=== PATIENT | male | born 1955 | race Two or more races ===

== ENCOUNTER 2023-09-07 17:41 | Inpatient (IN) | payer MEDICARE, OTHER ==
[~2023-09-07] VITALS: Ht 188 cm; Wt 75.0 kg
[2023-09-07 18:51] LABS: Basophils # (auto) 0.1 10 ^3/uL (0-0.2); Basophils % (auto) 0.9 % (0.0-2.0); Eosinophils # (auto) 0 10 ^3/uL (0-0.8); Eosinophils % (auto) 0.5 % (0.0-7.0); Hematocrit 40.8 % (41.0-53.0); Hemoglobin 14.3 g/dL (13.5-17.5); Lymphocytes # (auto) 1.4 10 ^3/uL (0.4-5.4); Lymphocytes % (auto) 22.5 % (10.0-50.0); Mean Corpuscular Volume 102.9 fL (80.0-100.0); Monocytes # (auto) 0.5 10 ^3/uL (0-1.3); Monocytes % (auto) 8.3 % (0.0-12.0); Neutrophils # (auto) 4.3 10 ^3/uL (1.6-8.6); Neutrophils % (auto) 67.8 % (37.0-80.0); Nucleated Red Blood Cells % 0.3 %; Red Blood Cells 3.97 10^6/uL (4.5-5.90); Red Cell Distribution Width 16.2 % (11.8-14.3); White Blood Cell 6.3 10^3/uL (4.4-10.8)
[2023-09-07 19:09] LABS: Alanine Aminotransferase 75 U/L (7-40); Albumin 2.7 g/dL (3.2-4.8); Alkaline Phosphatase 183 U/L (46-116); Anion Gap 6 (5-15); Aspartate Aminotransferase 100 U/L (13-40); BUN/Creatinine Ratio 12.3 (10.0-20.0); Blood Alcohol < 3.0 mg/dL (<10); Blood Urea Nitrogen 10 mg/dL (9-23); Calcium 8.4 mg/dL (8.5-10.1); Carbon Dioxide 23 mmol/L (20-30); Chloride 104 mmol/L (98-107); Glucose 100 mg/dL (74-106); Potassium 3.8 mmol/L (3.5-5.1); Sodium 133 mmol/L (136-145)
[2023-09-07 19:10] LABS: Bilirubin, Total 3.1 mg/dL (0.2-1.0); Total Protein 7.6 g/dL (5.7-8.2)
[2023-09-07 22:45] VITALS: PULSE 86; RESP 13; O2SAT 93
[2023-09-08 04:33] LABS: Amphetamine Screen, Urine Neg (NEGATIVE); Barbiturate Scree,Urine Neg (NEGATIVE); Benzodiazephine Screen, Urine Neg (NEGATIVE)
[2023-09-08 04:34] LABS: Cannabinoid Screen, Urine Neg (NEGATIVE); Cocaine Screen, Urine Neg (NEGATIVE); Opiate Scree,Urine Neg (NEGATIVE); Phencyclidine Screen, Urine Neg (NEGATIVE)
[2023-09-08 04:58] LABS: Urine Bacteria NONE SEEN /hpf (None Seen); Urine Blood Negative /uL (Negative); Urine Clarity Clear (Clear); Urine Color Yellow (Yellow); Urine Mucus FEW (None Seen); Urine Protein, UAD Negative (Negative); Urine Specific Gravity 1.021 (1.001-1.035); Urine Urobilinogen >12.0 mg/dL (Negative); Urine WBC 2 /hpf (0 - 3)
[2023-09-08] MEDS ORDERED: ONDANSETRON HCL 4 MG/2 ML VIAL IV PRN (05:15)
[2023-09-08] MEDS: SODIUM CHLORIDE 0.9% 1,000 ML IV ONE (05:29)
[2023-09-08] MEDS: LACTULOSE 20Gm/30ML SOLN PO SCH (08:53)
[2023-09-08 13:03] VITALS: BP 126/72; PULSE 66; RESP 17; TEMP 97.8; O2SAT 96
[2023-09-08] MEDS ORDERED: LACTULOSE 20Gm/30ML SOLN PO SCH (22:00)
== END 2023-09-08 16:12 | disposition home or self-care (01) | DRG 92 ==
LOC: EDBD 17:41 → ER 17:41 → OVERFLOW 09-08 05:15
PROVIDERS: ADMIT Nurse Practitioner; ATTEND Nurse Practitioner Acute Care
DX: G92.9 Unspecified toxic encephalopathy (principal); E72.20 Disorder of urea cycle metabolism, unspecified; K76.82 Hepatic encephalopathy; R74.01 Elevation of levels of liver transaminase levels; F11.90 Opioid use, unspecified, uncomplicated; K74.60 Unspecified cirrhosis of liver
CPT/HCPCS: 36415; 70450; 76700; 80053; 80307; 80320; 81001; 82140; 82962; 83690; 85025; 93005; G0378

== ENCOUNTER 2023-09-26 06:46 | Inpatient (IN) | payer MEDICARE, OTHER ==
[2023-09-26] VITALS (12 sets, daily range): BP systolic 100–143; BP diastolic 65–94; PULSE 59–134; RESP 18–32; O2SAT 87–100
[~2023-09-26] VITALS: Ht 167.6 cm; Wt 72.1 kg
[2023-09-26 07:51] LABS: Basophils # (auto) 0 10 ^3/uL (0-0.2); Eosinophils # (auto) 0 10 ^3/uL (0-0.8); Eosinophils % (auto) 0.2 % (0.0-7.0); Hemoglobin 14.8 g/dL (13.5-17.5); Lymphocytes # (auto) 0.6 10 ^3/uL (0.4-5.4); Monocytes # (auto) 0.3 10 ^3/uL (0-1.3)
[2023-09-26 07:53] LABS: Basophils % (auto) 0.3 % (0.0-2.0); Hematocrit 39.4 % (41.0-53.0); Mean Corpuscular Hemoglobin 38.8 pg (28.0-32.0); Mean Corpuscular Volume 103.5 fL (80.0-100.0); Monocytes % (auto) 7.6 % (0.0-12.0); Neutrophils # (auto) 3.2 10 ^3/uL (1.6-8.6); Neutrophils % (auto) 76.9 % (37.0-80.0); Nucleated Red Blood Cells % 0.7 %; Red Cell Distribution Width 16.6 % (11.8-14.3); White Blood Cell 4.2 10^3/uL (4.4-10.8)
[2023-09-26 07:59] LABS: Mean Corpuscular Hgb Conc. 37.5 g/dL (32.0-36.0)
[2023-09-26] MEDS: IPRATROPIUM BROM 0.5 MG/2.5ML INH SOL NEB ONE (08:02)
[2023-09-26] MEDS: ALBUTEROL SULF 2.5 MG/0.5ML(0.5%) NEB SOLN NEB ONE (08:02)
[2023-09-26 08:12] LABS: Alanine Aminotransferase 48 U/L (7-40); Albumin 2.3 g/dL (3.2-4.8); Alkaline Phosphatase 145 U/L (46-116); Anion Gap 14 (5-15); Aspartate Aminotransferase 78 U/L (13-40); BUN/Creatinine Ratio 24.4 (10.0-20.0); Bilirubin, Total 2.8 mg/dL (0.2-1.0); Blood Urea Nitrogen 21 mg/dL (9-23); Calcium 8.2 mg/dL (8.5-10.1); Carbon Dioxide 15 mmol/L (20-30); Chloride 106 mmol/L (98-107); Glucose 84 mg/dL (74-106); Potassium 4.4 mmol/L (3.5-5.1); Sodium 135 mmol/L (136-145); Total Protein 6.6 g/dL (5.7-8.2)
[2023-09-26 08:18] LABS: Lactic Acid w/Reflex 5.5 mmol/L (0.4-2.0)
[2023-09-26 08:25] LABS: Base Excess -6.6 mmol/L (-2.0-2.0)
[2023-09-26 08:38] LABS: Anisocytosis Slight; Macrocytosis Slight; Platelet Estimate Adequate; Tear Drop Cells FEW
[2023-09-26] MEDS: SODIUM CHLORIDE 0.9% 1,000 ML IV ONE ×3 (09:51→15:50)
[2023-09-26] MEDS: methylPREDNISolone SOD SUCC 125 MG/2 ML VL IV ONE (09:51)
[2023-09-26] MEDS: FUROSEMIDE 40 MG/4 ML VIAL IV ONE (09:51)
[2023-09-26] MEDS: LORazepam 0.5 MG TAB PO ONE (10:36)
[2023-09-26] MEDS ORDERED: ACETAMINOPHEN 325 MG TAB PO PRN (10:45)
[2023-09-26] MEDS ORDERED: NITROGLYCERIN 0.4 MG SL TAB SL PRN (10:45)
[2023-09-26] MEDS ORDERED: MORPHINE SULFATE INJ 2 MG/ml SYRG IV PRN (10:45)
[2023-09-26] MEDS: cefTRIAXone 1GM/50ML D5W 50 ML IV ONE (11:32)
[2023-09-26] MEDS: PANTOPRAZOLE 40 MG/10 ML VIAL INJ IV ONE (11:32)
[2023-09-26 11:49] LABS: Urine Bacteria FEW /hpf (None Seen); Urine Blood TRACE /uL (Negative); Urine Clarity Clear (Clear); Urine Color Yellow (Yellow); Urine Hyaline Cast MANY /lpf (0 - 2); Urine Mucus FEW (None Seen); Urine Protein, UAD Negative (Negative); Urine Specific Gravity 1.009 (1.001-1.035); Urine Urobilinogen 4 mg/dL (Negative); Urine WBC 7 /hpf (0 - 3); Urine pH 6.5 (5.0-9.0)
[2023-09-26] MEDS: AZITHROMYCIN 500MG/ 250ML 250 ML IV ONE (12:01)
[2023-09-26 12:06] LABS: Amphetamine Screen, Urine Neg (NEGATIVE); Barbiturate Scree,Urine Neg (NEGATIVE); Benzodiazephine Screen, Urine Neg (NEGATIVE); Cocaine Screen, Urine Neg (NEGATIVE); Opiate Scree,Urine Neg (NEGATIVE)
[2023-09-26 12:07] LABS: Cannabinoid Screen, Urine Neg (NEGATIVE); Phencyclidine Screen, Urine Neg (NEGATIVE)
[2023-09-26 13:44] LABS: INR 1.75 (0.9-1.15); Prothrombin Time 17.7 sec (9.3-11.8)
[2023-09-26] MEDS: FUROSEMIDE 20 MG/2 ML VIAL IV ONE (13:59)
[2023-09-26] MEDS: IPRATROPIUM BROM 0.5 MG/2.5ML INH SOL NEB SCH (14:10)
[2023-09-26] MEDS: ALBUTEROL SULF 2.5 MG/0.5ML(0.5%) NEB SOLN NEB SCH (14:10)
[2023-09-26 14:44] LABS: Rapid Influenza A Negative (Negative); Rapid Influenza B Negative (Negative)
[2023-09-26 14:45] LABS: COVID19 ANTIGEN SOFIA FIA NEGATIVE (NEGATIVE)
[2023-09-26 15:25] LABS: Lactic Acid w/Reflex 8.9 mmol/L (0.4-2.0)
[2023-09-26 20:53] LABS: Lactic Acid w/Reflex 9.6 mmol/L (0.4-2.0)
[2023-09-26] MEDS: methylPREDNISolone SOD SUCC 40 MG/ML VL IV SCH (21:14)
[2023-09-27] VITALS (12 sets, daily range): BP systolic 106–135; BP diastolic 39–80; PULSE 109–121; RESP 23–27; O2SAT 92–98
[2023-09-27 05:53] LABS: Basophils # (auto) 0 10 ^3/uL (0-0.2); Eosinophils # (auto) 0 10 ^3/uL (0-0.8); Hematocrit 37.5 % (41.0-53.0); Lymphocytes # (auto) 0.8 10 ^3/uL (0.4-5.4); Lymphocytes % (auto) 6.1 % (10.0-50.0)
[2023-09-27 05:55] LABS: Eosinophils % (auto) 0.1 % (0.0-7.0); Mean Corpuscular Hemoglobin 38.8 pg (28.0-32.0); Mean Corpuscular Volume 104.1 fL (80.0-100.0); Monocytes # (auto) 0.5 10 ^3/uL (0-1.3); Monocytes % (auto) 3.6 % (0.0-12.0); Neutrophils # (auto) 11.4 10 ^3/uL (1.6-8.6); Neutrophils % (auto) 90.2 % (37.0-80.0); Nucleated Red Blood Cells % 0.2 %; Red Cell Distribution Width 16.8 % (11.8-14.3); White Blood Cell 12.7 10^3/uL (4.4-10.8)
[2023-09-27 05:56] LABS: Alanine Aminotransferase 39 U/L (7-40); Alkaline Phosphatase 99 U/L (46-116); Anion Gap 18 (5-15); Aspartate Aminotransferase 81 U/L (13-40); BUN/Creatinine Ratio 20.8 (10.0-20.0); Blood Urea Nitrogen 21 mg/dL (9-23); Calcium 8.2 mg/dL (8.5-10.1); Carbon Dioxide 14 mmol/L (20-30); Chloride 109 mmol/L (98-107); Glucose 93 mg/dL (74-106); Potassium 4.3 mmol/L (3.5-5.1); Sodium 141 mmol/L (136-145)
[2023-09-27 05:57] LABS: Bilirubin, Total 2.6 mg/dL (0.2-1.0); Total Protein 5.7 g/dL (5.7-8.2)
[2023-09-27 06:00] LABS: Mean Corpuscular Hgb Conc. 37.2 g/dL (32.0-36.0)
[2023-09-27] MEDS: cefTRIAXone 1GM/50ML D5W 50 ML IV SCH (09:20)
[2023-09-27] MEDS: ENOXAPARIN SOD 40 MG/0.4 ML SYRINGE SC SCH (10:47)
[2023-09-27] MEDS: PANTOPRAZOLE 40 MG/10 ML VIAL INJ IV SCH (10:47)
[2023-09-27] MEDS: AZITHROMYCIN 500MG/ 250ML 250 ML IV SCH (10:48)
[2023-09-27] MEDS: ONDANSETRON HCL 4 MG/2 ML VIAL IV PRN (20:56)
[2023-09-27] MEDS: LORazepam 2MG/ML-1ML VIAL IV PRN (20:58)
[2023-09-28] VITALS (13 sets, daily range): BP systolic 98–169; BP diastolic 49–103; PULSE 94–123; RESP 20–22; O2SAT 94–98
[2023-09-28] MEDS: ALBUTEROL SULF 2.5 MG/0.5ML(0.5%) NEB SOLN NEB PRN (00:21)
[2023-09-28] MEDS: PROPOFOL 100 ML IV SCH (12:40)
[2023-09-28] MEDS ORDERED: VANCOMYCIN PER PHARMACY 0 MG IV SCH (12:45)
[2023-09-28] MEDS: ROCURONIUM 10MG/ML 10ML VIAL IV ONE (13:00)
[2023-09-28] MEDS: ETOMIDATE (2MG/ML) 20ML VIAL IV ONE (13:00)
[2023-09-28] MEDS: fentaNYL Drip 2500mCg/250mlNS 250 ML IV SCH (13:16)
[2023-09-28 15:16] LABS: Base Excess -6.5 mmol/L (-2.0-2.0)
[2023-09-28] MEDS: NOREPINEPHRINE 8 MG/250ML KIT 250 ML IV SCH (15:37)
[2023-09-28] MEDS: VASOPRESSIN 20 UNITS in SODIUM CHL 0.9% 99 ML IV SCH (15:50)
[2023-09-28] MEDS: THIAMINE 100mg/ml INJ (200mg/2ml VIAL) IV SCH (19:03)
[2023-09-28] MEDS: SODIUM BICARB 50mEq/50ml Vial 50 ML in SOD CHL 0.45% 1,000 ML IV SCH (20:30)
[2023-09-28] MEDS: VANCOMYCIN 1GM/200ML 200 ML IV ONE (20:38)
[2023-09-28] MEDS: CEFEPIME 2GM/50ML NS 50 ML IV SCH (22:10)
[2023-09-29] VITALS (84 sets, daily range): BP systolic 87–135; BP diastolic 41–110; PULSE 67–100; RESP 13–22; TEMP 97.6–98.6; O2SAT 91–99
[2023-09-29 04:59] LABS: Alanine Aminotransferase 38 U/L (7-40); Albumin 1.8 g/dL (3.2-4.8); Alkaline Phosphatase 80 U/L (46-116); Anion Gap 9 (5-15); Aspartate Aminotransferase 72 U/L (13-40); BUN/Creatinine Ratio 30.9 (10.0-20.0); Carbon Dioxide 20 mmol/L (20-30); Chloride 109 mmol/L (98-107); Glucose 133 mg/dL (74-106); Potassium 5.1 mmol/L (3.5-5.1); Sodium 138 mmol/L (136-145)
[2023-09-29 05:00] LABS: Bilirubin, Total 2.2 mg/dL (0.2-1.0); Total Protein 5.4 g/dL (5.7-8.2)
[2023-09-29 05:01] LABS: Blood Urea Nitrogen 50 mg/dL (9-23)
[2023-09-29 05:14] LABS: Basophils # (auto) 0 10 ^3/uL (0-0.2); Basophils % (auto) 0.4 % (0.0-2.0); Eosinophils # (auto) 0 10 ^3/uL (0-0.8); Hematocrit 36.4 % (41.0-53.0); Hemoglobin 12.3 g/dL (13.5-17.5); Lymphocytes # (auto) 0.8 10 ^3/uL (0.4-5.4); Lymphocytes % (auto) 6.7 % (10.0-50.0); Mean Corpuscular Hemoglobin 33.3 pg (28.0-32.0); Mean Corpuscular Hgb Conc. 33.6 g/dL (32.0-36.0); Mean Corpuscular Volume 99.1 fL (80.0-100.0); Monocytes # (auto) 0.5 10 ^3/uL (0-1.3); Monocytes % (auto) 4.5 % (0.0-12.0); Neutrophils # (auto) 10.3 10 ^3/uL (1.6-8.6); Neutrophils % (auto) 88.4 % (37.0-80.0); Nucleated Red Blood Cells % 0.1 %; Red Blood Cells 3.68 10^6/uL (4.5-5.90); Red Cell Distribution Width 16.8 % (11.8-14.3); White Blood Cell 11.6 10^3/uL (4.4-10.8)
[2023-09-29 07:47] LABS: Base Excess -4.8 mmol/L (-2.0-2.0)
[2023-09-29] MEDS: VANCOMYCIN 750mg/150ml 150 ML IV SCH (09:00)
[2023-09-29] MEDS: ALBUMIN 25% 100 ML IV SCH (09:24)
[2023-09-29] MEDS: MIDODRINE HCL 10 MG TAB PO SCH (13:15)
[2023-09-29] MEDS: LINEZOLID 600MG/300ML 300 ML IV SCH (19:53)
[2023-09-29] MEDS ORDERED: LINEZOLID 600MG/300ML 300 ML IV SCH (22:00)
[2023-09-30] VITALS (110 sets, daily range): BP systolic 91–135; BP diastolic 45–61; PULSE 63–93; RESP 16–22; TEMP 96.3–98.7; O2SAT 91–98
[2023-09-30 07:35] LABS: Alanine Aminotransferase 32 U/L (7-40); Alkaline Phosphatase 78 U/L (46-116); Anion Gap 8 (5-15); Aspartate Aminotransferase 45 U/L (13-40); BUN/Creatinine Ratio 33.5 (10.0-20.0); Calcium 8.1 mg/dL (8.5-10.1); Carbon Dioxide 23 mmol/L (20-30); Chloride 106 mmol/L (98-107); Glucose 158 mg/dL (74-106); Potassium 5.2 mmol/L (3.5-5.1); Sodium 137 mmol/L (136-145)
[2023-09-30 07:36] LABS: Bilirubin, Total 2.2 mg/dL (0.2-1.0); Total Protein 6.4 g/dL (5.7-8.2)
[2023-09-30 07:38] LABS: Albumin 2.8 g/dL (3.2-4.8)
[2023-09-30 07:39] LABS: Blood Urea Nitrogen 69 mg/dL (9-23)
[2023-09-30 08:13] LABS: Basophils # (auto) 0 10 ^3/uL (0-0.2); Basophils % (auto) 0.1 % (0.0-2.0); Eosinophils # (auto) 0 10 ^3/uL (0-0.8); Hematocrit 32.8 % (41.0-53.0); Hemoglobin 11.2 g/dL (13.5-17.5); Lymphocytes # (auto) 0.9 10 ^3/uL (0.4-5.4); Mean Corpuscular Hemoglobin 34.5 pg (28.0-32.0); Mean Corpuscular Volume 101.3 fL (80.0-100.0); Monocytes # (auto) 0.8 10 ^3/uL (0-1.3); Monocytes % (auto) 6.4 % (0.0-12.0); Neutrophils # (auto) 11.3 10 ^3/uL (1.6-8.6); Neutrophils % (auto) 86.5 % (37.0-80.0); Nucleated Red Blood Cells % 0.1 %; Red Blood Cells 3.23 10^6/uL (4.5-5.90); Red Cell Distribution Width 16.8 % (11.8-14.3); White Blood Cell 13.1 10^3/uL (4.4-10.8)
[2023-09-30 08:34] LABS: Base Excess -6.1 mmol/L (-2.0-2.0)
[2023-09-30] MEDS ORDERED: Nepro With Carb Steady 1 Liter Bottle GT SCH (09:15)
[2023-09-30] MEDS: methylPREDNISolone SOD SUCC 40 MG/ML VL IV SCH (10:40)
[2023-09-30] MEDS: DOXYCYCLINE 100MG/250ML 250 ML IV SCH (10:41)
[2023-09-30] MEDS: FUROSEMIDE 100 MG/10ML VIAL IV ONE (14:18)
[2023-10-01] VITALS (111 sets, daily range): BP systolic 88–128; BP diastolic 44–70; PULSE 67–109; RESP 17–25; TEMP 97–98.3; O2SAT 93–99
[2023-10-01 05:37] LABS: Chloride 107 mmol/L (98-107); Potassium 4.2 mmol/L (3.5-5.1); Sodium 140 mmol/L (136-145)
[2023-10-01 05:38] LABS: Anion Gap 9 (5-15); Carbon Dioxide 24 mmol/L (20-30)
[2023-10-01 05:43] LABS: Blood Urea Nitrogen 77 mg/dL (9-23); Glucose 157 mg/dL (74-106)
[2023-10-01 07:33] LABS: Base Excess -3.5 mmol/L (-2.0-2.0)
[2023-10-01 07:54] LABS: Hematocrit 30.8 % (41.0-53.0); Hemoglobin 10.4 g/dL (13.5-17.5); Mean Corpuscular Hemoglobin 34.3 pg (28.0-32.0); Mean Corpuscular Hgb Conc. 33.8 g/dL (32.0-36.0); Mean Corpuscular Volume 101.6 fL (80.0-100.0); Red Blood Cells 3.03 10^6/uL (4.5-5.90); Red Cell Distribution Width 16.7 % (11.8-14.3)
[2023-10-01 07:58] LABS: Eosinophils % (manual) 0 (0-7)
[2023-10-01 07:59] LABS: Basophils % (manual) 0 (0.0-2.0); Blast Cells 0; Metamyelocytes % 0; Myelocytes % 0; Promyelocytes % 0; Reactive Lymphocytes 0
[2023-10-01 08:46] LABS: Hepatitis B Surface Antigen Negative (Negative)
[2023-10-01 09:05] LABS: Band Neutrophils % (manual) 17; Lymphocytes % (manual) 7 (10.0-50.0); Monocytes % (manual) 4 (0-12); Platelet Estimate Decreased
[2023-10-01 09:06] LABS: Hepatitis A Ab IgM Negative
[2023-10-01 09:07] LABS: Hepatitis B Core IgM Negative
[2023-10-01] MEDS: FUROSEMIDE 40 MG/4 ML VIAL IV SCH (10:15)
[2023-10-01 11:42] LABS: Hepatitis C Antibody Positive (Negative)
[2023-10-02] VITALS (51 sets, daily range): BP systolic 99–157; BP diastolic 56–81; PULSE 75–133; RESP 9–30; TEMP 96.7–98.6; O2SAT 90–100
[2023-10-02 06:38] LABS: Anion Gap 10 (5-15); Carbon Dioxide 24 mmol/L (20-30); Chloride 107 mmol/L (98-107); Potassium 4.3 mmol/L (3.5-5.1); Sodium 141 mmol/L (136-145)
[2023-10-02 06:39] LABS: Calcium 8.5 mg/dL (8.5-10.1)
[2023-10-02 06:44] LABS: Blood Urea Nitrogen 79 mg/dL (9-23); Glucose 96 mg/dL (74-106)
[2023-10-02 06:56] LABS: Base Excess -3.7 mmol/L (-2.0-2.0)
[2023-10-02 07:18] LABS: Hematocrit 33.9 % (41.0-53.0); Hemoglobin 12.6 g/dL (13.5-17.5); Mean Corpuscular Hemoglobin 39.5 pg (28.0-32.0); Mean Corpuscular Volume 106.5 fL (80.0-100.0); Red Blood Cells 3.19 10^6/uL (4.5-5.90); Red Cell Distribution Width 16.3 % (11.8-14.3); White Blood Cell 11.9 10^3/uL (4.4-10.8)
[2023-10-02 07:19] LABS: Mean Corpuscular Hgb Conc. 37.1 g/dL (32.0-36.0)
[2023-10-02 07:21] LABS: Basophils % (manual) 0 (0.0-2.0); Blast Cells 0; Eosinophils % (manual) 0 (0-7); Metamyelocytes % 0; Myelocytes % 0; Promyelocytes % 0; Reactive Lymphocytes 0
[2023-10-02 08:51] LABS: Band Neutrophils % (manual) 1; Lymphocytes % (manual) 5 (10.0-50.0); Macrocytosis Slight; Monocytes % (manual) 4 (0-12); Platelet Estimate Decreased
[2023-10-02 09:03] LABS: Base Excess -2.9 mmol/L (-2.0-2.0)
[2023-10-02] MEDS: THIAMINE 100mg/ml INJ (200mg/2ml VIAL) IV SCH (13:27)
[2023-10-02] MEDS: FOLIC ACID 1 MG in D5W 5% 50 ML INJ SCH (13:27)
[2023-10-03] VITALS (33 sets, daily range): BP systolic 115–129; BP diastolic 69–83; PULSE 89–105; RESP 17–24; TEMP 97–97.4; O2SAT 18–100
[2023-10-03 05:51] LABS: Anion Gap 13 (5-15); Carbon Dioxide 23 mmol/L (20-30); Chloride 108 mmol/L (98-107); Potassium 3.6 mmol/L (3.5-5.1); Sodium 144 mmol/L (136-145)
[2023-10-03 05:52] LABS: Calcium 8.8 mg/dL (8.7-10.4)
[2023-10-03 05:57] LABS: BUN/Creatinine Ratio 38.5 (10.0-20.0); Blood Urea Nitrogen 74 mg/dL (9-23); Glucose 120 mg/dL (74-106)
[2023-10-03 06:52] LABS: Basophils # (auto) 0 10 ^3/uL (0-0.2); Basophils % (auto) 0.2 % (0.0-2.0); Eosinophils # (auto) 0 10 ^3/uL (0-0.8)
[2023-10-03 06:54] LABS: Eosinophils % (auto) 0.1 % (0.0-7.0); Hematocrit 37.6 % (41.0-53.0); Hemoglobin 13.1 g/dL (13.5-17.5); Lymphocytes # (auto) 0.4 10 ^3/uL (0.4-5.4); Lymphocytes % (auto) 3.9 % (10.0-50.0); Mean Corpuscular Hemoglobin 35.4 pg (28.0-32.0); Mean Corpuscular Hgb Conc. 34.7 g/dL (32.0-36.0); Mean Corpuscular Volume 101.7 fL (80.0-100.0); Monocytes # (auto) 0.6 10 ^3/uL (0-1.3); Monocytes % (auto) 5.5 % (0.0-12.0); Neutrophils # (auto) 9.5 10 ^3/uL (1.6-8.6); Neutrophils % (auto) 90.3 % (37.0-80.0); Nucleated Red Blood Cells % 0.8 %; Red Cell Distribution Width 16.1 % (11.8-14.3); White Blood Cell 10.5 10^3/uL (4.4-10.8)
[2023-10-03] MEDS: FUROSEMIDE 40 MG/4 ML VIAL IV SCH (09:50)
[2023-10-03] MEDS: ALBUTEROL SULF 2.5 MG/0.5ML(0.5%) NEB SOLN NEB SCH (12:40)
[2023-10-03] MEDS: IPRATROPIUM BROM 0.5 MG/2.5ML INH SOL NEB SCH (12:41)
[2023-10-03] MEDS: FOLIC ACID 1 MG, MULTIPLE VITAMIN 10 ML, MAGNESIUM SULF SDV 50% 8 MEQ, THIAMINE INJ 100... INJ SCH (16:00)
[2023-10-04] VITALS (39 sets, daily range): BP systolic 111–133; BP diastolic 70–88; PULSE 89–114; RESP 18–25; TEMP 96.9–98; O2SAT 92–100
[2023-10-04 04:58] LABS: Anion Gap 11 (5-15); Carbon Dioxide 23 mmol/L (20-30); Chloride 108 mmol/L (98-107); Potassium 3.5 mmol/L (3.5-5.1); Sodium 142 mmol/L (136-145)
[2023-10-04 04:59] LABS: Calcium 8.8 mg/dL (8.7-10.4)
[2023-10-04 05:04] LABS: BUN/Creatinine Ratio 37.5 (10.0-20.0); Blood Urea Nitrogen 75 mg/dL (9-23); Glucose 139 mg/dL (74-106)
[2023-10-04 05:50] LABS: Basophils # (auto) 0 10 ^3/uL (0-0.2); Eosinophils # (auto) 0 10 ^3/uL (0-0.8); Eosinophils % (auto) 0.1 % (0.0-7.0); Red Cell Distribution Width 16.3 % (11.8-14.3)
[2023-10-04 05:51] LABS: Basophils % (auto) 0.3 % (0.0-2.0); Hematocrit 41.2 % (41.0-53.0); Hemoglobin 14.4 g/dL (13.5-17.5); Lymphocytes # (auto) 0.4 10 ^3/uL (0.4-5.4); Lymphocytes % (auto) 3.7 % (10.0-50.0); Mean Corpuscular Hemoglobin 35.5 pg (28.0-32.0); Mean Corpuscular Hgb Conc. 34.9 g/dL (32.0-36.0); Mean Corpuscular Volume 101.7 fL (80.0-100.0); Monocytes # (auto) 0.5 10 ^3/uL (0-1.3); Monocytes % (auto) 4.1 % (0.0-12.0); Neutrophils # (auto) 10.3 10 ^3/uL (1.6-8.6); Neutrophils % (auto) 91.8 % (37.0-80.0); Nucleated Red Blood Cells % 0.7 %; Red Blood Cells 4.05 10^6/uL (4.5-5.90); White Blood Cell 11.2 10^3/uL (4.4-10.8)
[2023-10-04 07:54] LABS: Base Excess -0.4 mmol/L (-2.0-2.0)
[2023-10-04 11:11] LABS: Magnesium 2.7 mg/dL (1.6-2.6)
[2023-10-04] MEDS ORDERED: TPN PER PHARMACY 0 ML IV SCH (16:15)
[2023-10-04] MEDS ORDERED: DEXTROSE (50%) 50ML SYRG IV SCH (16:30)
[2023-10-04] MEDS: ACCU-CHEK COMFORT CURVE STRIP VI SCH (17:34)
[2023-10-04] MEDS: InsuLIN REG 1unit/0.01ml Soln (100units/ml) SC SCH (17:35)
[2023-10-04] MEDS: AMINO ACID INFUSION IN D5W 1,000 ML IV ONE (21:10)
[2023-10-05] VITALS (34 sets, daily range): BP systolic 112–156; BP diastolic 65–96; PULSE 86–109; RESP 14–25; TEMP 97–98.4; O2SAT 92–100
[2023-10-05 06:11] LABS: Alanine Aminotransferase 81 U/L (7-40); Albumin 2.5 g/dL (3.2-4.8); Alkaline Phosphatase 99 U/L (46-116); Anion Gap 11 (5-15); Aspartate Aminotransferase 118 U/L (13-40); BUN/Creatinine Ratio 41.9 (10.0-20.0); Calcium 8.8 mg/dL (8.7-10.4); Carbon Dioxide 23 mmol/L (20-30); Chloride 109 mmol/L (98-107); Glucose 145 mg/dL (74-106); Magnesium 2.6 mg/dL (1.6-2.6); Potassium 3.8 mmol/L (3.5-5.1); Sodium 143 mmol/L (136-145)
[2023-10-05 06:12] LABS: Bilirubin, Total 4.9 mg/dL (0.2-1.0); Phosphorus 5.3 mg/dL (2.4-5.1); Total Protein 6.9 g/dL (5.7-8.2)
[2023-10-05 06:57] LABS: Blood Urea Nitrogen 85 mg/dL (9-23)
[2023-10-05 07:04] LABS: Triglycerides 53 mg/dL (< 150)
[2023-10-05 07:44] LABS: Basophils # (auto) 0 10 ^3/uL (0-0.2); Basophils % (auto) 0.1 % (0.0-2.0); Eosinophils # (auto) 0 10 ^3/uL (0-0.8); Hemoglobin 14.4 g/dL (13.5-17.5); Lymphocytes # (auto) 0.5 10 ^3/uL (0.4-5.4)
[2023-10-05 07:45] LABS: Hematocrit 42.1 % (41.0-53.0); Lymphocytes % (auto) 3.4 % (10.0-50.0); Mean Corpuscular Hemoglobin 34.3 pg (28.0-32.0); Mean Corpuscular Hgb Conc. 34.1 g/dL (32.0-36.0); Mean Corpuscular Volume 100.7 fL (80.0-100.0); Monocytes # (auto) 0.7 10 ^3/uL (0-1.3); Monocytes % (auto) 5.2 % (0.0-12.0); Neutrophils # (auto) 13.1 10 ^3/uL (1.6-8.6); Neutrophils % (auto) 91.3 % (37.0-80.0); Nucleated Red Blood Cells % 0.6 %; Red Blood Cells 4.18 10^6/uL (4.5-5.90); Red Cell Distribution Width 16.6 % (11.8-14.3); White Blood Cell 14.4 10^3/uL (4.4-10.8)
[2023-10-05] MEDS: FUROSEMIDE 20 MG/2 ML VIAL IV SCH (09:38)
[2023-10-05] MEDS: SODIUM CHLORIDE 0.9% 1,000 ML IV SCH (11:40)
[2023-10-05] MEDS ORDERED: BISACODYL 10 MG RECT SUPP PR PRN (12:15)
[2023-10-05 13:12] LABS: Basophils # (auto) 0.1 10 ^3/uL (0-0.2); Basophils % (auto) 0.6 % (0.0-2.0); Eosinophils # (auto) 0 10 ^3/uL (0-0.8); Eosinophils % (auto) 0.1 % (0.0-7.0); Hematocrit 42.1 % (41.0-53.0); Hemoglobin 14.3 g/dL (13.5-17.5); Lymphocytes # (auto) 0.6 10 ^3/uL (0.4-5.4); Lymphocytes % (auto) 3.7 % (10.0-50.0); Mean Corpuscular Hemoglobin 34.7 pg (28.0-32.0); Mean Corpuscular Hgb Conc. 33.8 g/dL (32.0-36.0); Mean Corpuscular Volume 102.5 fL (80.0-100.0); Monocytes # (auto) 0.5 10 ^3/uL (0-1.3); Monocytes % (auto) 3.5 % (0.0-12.0); Neutrophils # (auto) 13.8 10 ^3/uL (1.6-8.6); Neutrophils % (auto) 92.1 % (37.0-80.0); Nucleated Red Blood Cells % 0.7 %; Red Blood Cells 4.11 10^6/uL (4.5-5.90); Red Cell Distribution Width 16.7 % (11.8-14.3)
[2023-10-05] MEDS: MUPIROCIN 2% OINT 15gm or 22gm TOP ONE (14:00)
[2023-10-05] MEDS: MUPIROCIN 2% OINT 15gm or 22gm FOR MRSA NARES EACHNOSTRI SCH (21:24)
[2023-10-05] MEDS: TPN PER PHARMACY IV NR (21:37)
[2023-10-05] MEDS: MEROPENEM 1GM IVPB 50 ML IV SCH (23:12)
[2023-10-06] VITALS (18 sets, daily range): BP systolic 125–156; BP diastolic 87–93; PULSE 86–111; RESP 16–24; TEMP 97.3–97.7; O2SAT 91–100
[2023-10-06 12:05] LABS: Alanine Aminotransferase 91 U/L (7-40); Albumin 2.4 g/dL (3.2-4.8); Alkaline Phosphatase 104 U/L (46-116); Anion Gap 9 (5-15); Aspartate Aminotransferase 116 U/L (13-40); BUN/Creatinine Ratio 43.8 (10.0-20.0); Bilirubin, Total 5.6 mg/dL (0.2-1.0); Calcium 8.9 mg/dL (8.7-10.4); Carbon Dioxide 22 mmol/L (20-30); Chloride 113 mmol/L (98-107); Glucose 167 mg/dL (74-106); Magnesium 2.7 mg/dL (1.6-2.6); Potassium 3.6 mmol/L (3.5-5.1); Sodium 144 mmol/L (136-145)
[2023-10-06 12:06] LABS: Basophils # (auto) 0.1 10 ^3/uL (0-0.2); Basophils % (auto) 0.3 % (0.0-2.0); Eosinophils # (auto) 0 10 ^3/uL (0-0.8); Hematocrit 41.9 % (41.0-53.0); Hemoglobin 14.7 g/dL (13.5-17.5); Lymphocytes # (auto) 0.7 10 ^3/uL (0.4-5.4); Lymphocytes % (auto) 3.7 % (10.0-50.0); Mean Corpuscular Hemoglobin 37.6 pg (28.0-32.0); Mean Corpuscular Volume 107.4 fL (80.0-100.0); Monocytes # (auto) 0.8 10 ^3/uL (0-1.3); Monocytes % (auto) 4.5 % (0.0-12.0); Neutrophils # (auto) 17.1 10 ^3/uL (1.6-8.6); Neutrophils % (auto) 91.5 % (37.0-80.0); Nucleated Red Blood Cells % 0.3 %; Red Cell Distribution Width 17.2 % (11.8-14.3); White Blood Cell 18.7 10^3/uL (4.4-10.8)
[2023-10-06 12:07] LABS: Total Protein 6.8 g/dL (5.7-8.2)
[2023-10-06 12:24] LABS: Platelet Estimate Decreased
[2023-10-06 12:31] LABS: Blood Urea Nitrogen 89 mg/dL (9-23)
[2023-10-06 16:18] LABS: Phosphorus 4.9 mg/dL (2.4-5.1)
[2023-10-06] MEDS: TPN PER PHARMACY IV NR (20:39)
[2023-10-07] VITALS (14 sets, daily range): BP systolic 115–152; BP diastolic 78–100; PULSE 54–110; RESP 16–22; TEMP 97.5–98; O2SAT 93–100
[2023-10-07] MEDS: ALBUTEROL SULF 2.5 MG/0.5ML(0.5%) NEB SOLN NEB SCH (07:06)
[2023-10-07] MEDS: IPRATROPIUM BROM 0.5 MG/2.5ML INH SOL NEB SCH (07:06)
[2023-10-07 11:06] LABS: Base Excess 0.3 mmol/L (-2.0-2.0)
[2023-10-07 12:29] LABS: Alanine Aminotransferase 84 U/L (7-40); Albumin 2.2 g/dL (3.2-4.8); Alkaline Phosphatase 105 U/L (46-116); Anion Gap 10 (5-15); Aspartate Aminotransferase 129 U/L (13-40); BUN/Creatinine Ratio 47.2 (10.0-20.0); Calcium 8.6 mg/dL (8.5-10.1); Carbon Dioxide 23 mmol/L (20-30); Chloride 111 mmol/L (98-107); Glucose 241 mg/dL (74-106); Potassium 4.1 mmol/L (3.5-5.1); Sodium 144 mmol/L (136-145)
[2023-10-07 12:31] LABS: Bilirubin, Total 5.7 mg/dL (0.2-1.0); Phosphorus 4.6 mg/dL (2.4-5.1); Total Protein 6.5 g/dL (5.7-8.2)
[2023-10-07 12:46] LABS: Lactic Acid w/Reflex 2.3 mmol/L (0.4-2.0)
[2023-10-07 12:47] LABS: Blood Urea Nitrogen 100 mg/dL (9-23)
[2023-10-07 13:11] LABS: Magnesium 2.4 mg/dL (1.6-2.6)
[2023-10-07 15:20] LABS: Body Fluid Polymorphonuclear 90 % (0-25); Body Fluid Red Blood Cells 280 CUMM (0-2000); Body Fluid White Blood Cells 2000 CUMM (0-200)
[2023-10-07] MEDS: TPN PER PHARMACY IV NR (20:50)
[2023-10-08] VITALS (40 sets, daily range): BP systolic 78–125; BP diastolic 51–74; PULSE 95–122; RESP 16–37; TEMP 93–98.1; O2SAT 90–100
[2023-10-08 11:07] LABS: Protein, Body Fluid 0.8 g/dL (.)
[2023-10-08 13:24] LABS: Basophils # (auto) 0.1 10 ^3/uL (0-0.2); Eosinophils # (auto) 0 10 ^3/uL (0-0.8); Hemoglobin 14.8 g/dL (13.5-17.5); Monocytes % (auto) 2.9 % (0.0-12.0)
[2023-10-08 13:26] LABS: Basophils % (auto) 0.6 % (0.0-2.0); Hematocrit 40.8 % (41.0-53.0); Lymphocytes # (auto) 0.5 10 ^3/uL (0.4-5.4); Lymphocytes % (auto) 2.1 % (10.0-50.0); Mean Corpuscular Hemoglobin 37.1 pg (28.0-32.0); Mean Corpuscular Hgb Conc. 36.4 g/dL (32.0-36.0); Mean Corpuscular Volume 102.2 fL (80.0-100.0); Monocytes # (auto) 0.7 10 ^3/uL (0-1.3); Neutrophils # (auto) 23.7 10 ^3/uL (1.6-8.6); Neutrophils % (auto) 94.4 % (37.0-80.0); Nucleated Red Blood Cells % 0.2 %; Red Blood Cells 3.99 10^6/uL (4.5-5.90); Red Cell Distribution Width 16.8 % (11.8-14.3); White Blood Cell 25.2 10^3/uL (4.4-10.8)
[2023-10-08 13:36] LABS: Alanine Aminotransferase 96 U/L (7-40); Albumin 2.1 g/dL (3.2-4.8); Alkaline Phosphatase 108 U/L (46-116); Anion Gap 8 (5-15); Aspartate Aminotransferase 148 U/L (13-40); BUN/Creatinine Ratio 53.7 (10.0-20.0); Calcium 8.9 mg/dL (8.5-10.1); Carbon Dioxide 25 mmol/L (20-30); Chloride 112 mmol/L (98-107); Glucose 143 mg/dL (74-106); Potassium 3.8 mmol/L (3.5-5.1); Sodium 145 mmol/L (136-145)
[2023-10-08 13:37] LABS: Total Protein 6.1 g/dL (5.7-8.2)
[2023-10-08 13:41] LABS: Blood Urea Nitrogen 116 mg/dL (9-23)
[2023-10-08 14:26] LABS: Magnesium 2.2 mg/dL (1.6-2.6)
[2023-10-08 14:27] LABS: Phosphorus 3.6 mg/dL (2.4-5.1)
[2023-10-08] MEDS: TPN PER PHARMACY IV NR (21:16)
[2023-10-08] MEDS: ALBUMIN 25% 50 ML IV ONE (22:17)
[2023-10-08] MEDS: LACTATED RINGER'S 1,000 ML IV SCH (22:18)
[2023-10-08 22:53] LABS: Base Excess -0.4 mmol/L (-2.0-2.0)
[2023-10-08 23:34] LABS: Lactic Acid w/Reflex 2.4 mmol/L (0.4-2.0)
[2023-10-09] VITALS (75 sets, daily range): BP systolic 71–129; BP diastolic 46–80; PULSE 102–130; RESP 18–37; TEMP 97.2–99.7; O2SAT 91–99
[2023-10-09 03:40] LABS: Urine Bacteria FEW /hpf (None Seen); Urine Blood TRACE /uL (Negative); Urine Budding Yeast MANY /hpf (None Seen); Urine Clarity Turbid (Clear); Urine Color Dark-Yellow (Yellow); Urine Hyaline Cast FEW /lpf (0 - 2); Urine Mucus FEW (None Seen); Urine Protein, UAD TRACE (Negative); Urine Specific Gravity 1.017 (1.001-1.035); Urine Urobilinogen Normal (Negative); Urine WBC 22 /hpf (0 - 3)
[2023-10-09 05:45] LABS: Alanine Aminotransferase 131 U/L (7-40); Alkaline Phosphatase 103 U/L (46-116); Anion Gap 10 (5-15); BUN/Creatinine Ratio 50.6 (10.0-20.0); Calcium 8.9 mg/dL (8.7-10.4); Carbon Dioxide 22 mmol/L (20-30); Chloride 112 mmol/L (98-107); Glucose 129 mg/dL (74-106); Magnesium 2.2 mg/dL (1.6-2.6); Potassium 4.5 mmol/L (3.5-5.1); Sodium 144 mmol/L (136-145)
[2023-10-09 05:46] LABS: Aspartate Aminotransferase 197 U/L (13-40); Bilirubin, Total 6.7 mg/dL (0.2-1.0); Phosphorus 3.6 mg/dL (2.4-5.1); Total Protein 5.6 g/dL (5.7-8.2)
[2023-10-09 05:55] LABS: Blood Urea Nitrogen 122 mg/dL (9-23)
[2023-10-09] MEDS: NOREPINEPHRINE 8 MG/250ML KIT 250 ML IV SCH (08:15)
[2023-10-09] MEDS: MIDAZOLAM DRIP 50 mg/50mL 50 ML IV ONE (11:32)
[2023-10-09] MEDS: ETOMIDATE (2MG/ML) 20ML VIAL IV ONE ×2 (11:45→11:56)
[2023-10-09] MEDS: ROCURONIUM 10MG/ML 10ML VIAL IV ONE ×2 (11:45→11:57)
[2023-10-09] MEDS: fentaNYL Drip 2500mCg/250mlNS 250 ML IV SCH (11:45)
[2023-10-09] MEDS: MIDAZOLAM DRIP 50 mg/50mL 50 ML IV SCH (11:58)
[2023-10-09] MEDS: fentaNYL Drip 2500mCg/250mlNS 250 ML IV ONE (11:59)
[2023-10-09 13:48] LABS: Base Excess -3.9 mmol/L (-2.0-2.0)
[2023-10-09] MEDS: TPN PER PHARMACY IV NR (20:05)
[2023-10-10] VITALS (108 sets, daily range): BP systolic 72–113; BP diastolic 36–65; PULSE 98–123; RESP 15–25; TEMP 96.6–99.1; O2SAT 91–99
[2023-10-10 04:10] LABS: Hemoglobin 13.8 g/dL (13.5-17.5)
[2023-10-10 04:12] LABS: Hematocrit 39.7 % (41.0-53.0); Mean Corpuscular Hemoglobin 36.4 pg (28.0-32.0); Mean Corpuscular Hgb Conc. 34.9 g/dL (32.0-36.0); Mean Corpuscular Volume 104.3 fL (80.0-100.0); Red Cell Distribution Width 17.5 % (11.8-14.3); White Blood Cell 25.1 10^3/uL (4.4-10.8)
[2023-10-10 04:18] LABS: Basophils % (manual) 0 (0.0-2.0); Blast Cells 0; Eosinophils % (manual) 0 (0-7); Metamyelocytes % 0; Myelocytes % 0; Promyelocytes % 0; Reactive Lymphocytes 0
[2023-10-10 04:47] LABS: Alanine Aminotransferase 179 U/L (7-40); Alkaline Phosphatase 127 U/L (46-116); Anion Gap 7 (5-15); Aspartate Aminotransferase 261 U/L (13-40); BUN/Creatinine Ratio 50.9 (10.0-20.0); Bilirubin, Total 9.3 mg/dL (0.2-1.0); Calcium 8.7 mg/dL (8.7-10.4); Carbon Dioxide 23 mmol/L (20-30); Chloride 112 mmol/L (98-107); Glucose 153 mg/dL (74-106); Magnesium 2.2 mg/dL (1.6-2.6); Phosphorus 4.7 mg/dL (2.4-5.1); Potassium 4.8 mmol/L (3.5-5.1); Sodium 142 mmol/L (136-145)
[2023-10-10 04:52] LABS: Blood Urea Nitrogen 149 mg/dL (9-23)
[2023-10-10 05:08] LABS: Band Neutrophils % (manual) 2; Lymphocytes % (manual) 3 (10.0-50.0); Monocytes % (manual) 9 (0-12); Platelet Estimate Decreased
[2023-10-10 05:10] LABS: Total Protein 5.8 g/dL (5.7-8.2)
[2023-10-10] MEDS: ALBUMIN 25% 100 ML IV SCH (10:45)
[2023-10-10] MEDS: VASOPRESSIN 20 UNITS in SODIUM CHL 0.9% 99 ML IV SCH (10:57)
[2023-10-10] MEDS: TPN PER PHARMACY IV NR (19:58)
[2023-10-11] VITALS (106 sets, daily range): BP systolic 88–120; BP diastolic 44–62; PULSE 93–116; RESP 20–22; TEMP 96.6–99.8; O2SAT 92–98
[2023-10-11 04:09] LABS: Alanine Aminotransferase 100 U/L (7-40); Albumin 2.4 g/dL (3.2-4.8); Alkaline Phosphatase 107 U/L (46-116); Anion Gap 8 (5-15); Aspartate Aminotransferase 175 U/L (13-40); Calcium 8.8 mg/dL (8.5-10.1); Carbon Dioxide 22 mmol/L (20-30); Chloride 112 mmol/L (98-107); Glucose 138 mg/dL (74-106); Sodium 142 mmol/L (136-145)
[2023-10-11 04:10] LABS: Bilirubin, Total 10.7 mg/dL (0.2-1.0); Phosphorus 5.3 mg/dL (2.4-5.1); Total Protein 5.4 g/dL (5.7-8.2)
[2023-10-11 04:17] LABS: BUN/Creatinine Ratio 45.1 (10.0-20.0)
[2023-10-11 04:29] LABS: Blood Urea Nitrogen 158 mg/dL (9-23)
[2023-10-11 07:41] LABS: Base Excess -7.9 mmol/L (-2.0-2.0)
[2023-10-11] MEDS: ALBUTEROL SULF 2.5 MG/0.5ML(0.5%) NEB SOLN NEB ONE (12:00)
[2023-10-11] MEDS: SODIUM BICARB 8.4% 50Meq/50ml SYR Vial IV ONE (12:21)
[2023-10-11] MEDS: DEXTROSE (50%) 50ML SYRG IV ONE (12:21)
[2023-10-11] MEDS: InsuLIN REG 1unit/0.01ml Soln (100units/ml) IV ONE (12:24)
[2023-10-11] MEDS: ALBUMIN 25% 100 ML IV SCH (16:21)
[2023-10-11] MEDS: TPN PER PHARMACY IV NR (20:15)
[2023-10-11] MEDS: MEROPENEM 500MG IVPB 50 ML IV SCH (22:02)
[2023-10-12] VITALS (109 sets, daily range): BP systolic 51–151; BP diastolic 8–69; PULSE 89–108; RESP 11–21; TEMP 95.4–98.1; O2SAT 94–100
[2023-10-12 06:58] LABS: Bilirubin, Total 11.4 mg/dL (0.2-1.0); Phosphorus 5.8 mg/dL (2.4-5.1); Total Protein 5.7 g/dL (5.7-8.2)
[2023-10-12 07:17] LABS: Alanine Aminotransferase 73 U/L (7-40); Albumin 2.8 g/dL (3.2-4.8); Alkaline Phosphatase 116 U/L (46-116); Anion Gap 13 (5-15); Aspartate Aminotransferase 154 U/L (13-40); BUN/Creatinine Ratio 36.2 (10.0-20.0); Carbon Dioxide 20 mmol/L (20-30); Chloride 108 mmol/L (98-107); Glucose 151 mg/dL (74-106); Potassium 5.3 mmol/L (3.5-5.1); Sodium 141 mmol/L (136-145); Triglycerides 60 mg/dL (< 150)
[2023-10-12 07:19] LABS: Blood Urea Nitrogen 148 mg/dL (9-23)
[2023-10-12 10:17] LABS: Hepatitis A Ab IgM Negative
[2023-10-12 10:19] LABS: Hepatitis B Core IgM Negative
[2023-10-12 10:36] LABS: Hepatitis B Surface Antigen Positive (Negative); Hepatitis C Antibody Reactive (Negative)
[2023-10-12 10:38] LABS: INR 2.36 (0.9-1.15); Partial Thromboplastin Time 62.6 SEC (24.5-34.5); Prothrombin Time 23.5 sec (9.3-11.8)
[2023-10-12] MEDS: HEPARIN 1,000 UNITS/ml 1ML VIAL IV ONE ×2 (10:56→10:57)
[2023-10-12] MEDS: HEPARIN 1,000 UNITS/ml 1ML VIAL ONE (10:56)
[2023-10-12] MEDS: ALBUMIN 25% 100 ML IV ONE (13:18)
[2023-10-12 13:32] LABS: Body Fluid Polymorphonuclear 23 % (0-25); Body Fluid Red Blood Cells 125 CUMM (0-2000); Body Fluid White Blood Cells 75 CUMM (0-200)
[2023-10-12] MEDS: SODIUM CHL 0.9% 1000 ML BAG XX ONE (14:28)
[2023-10-12] MEDS: OCTREOTIDE ACETATE 100 MCG/ML VL SUBCUT SCH (14:30)
[2023-10-12] MEDS: DOPamine 1600MCG/ML D5W 250 ML IV SCH (14:46)
[2023-10-12] MEDS: VASOPRESSIN 20 UNITS in SODIUM CHL 0.9% 99 ML IV SCH ×2 (15:25→23:44)
[2023-10-12 16:35] LABS: Magnesium 2.1 mg/dL (1.6-2.6)
[2023-10-12] MEDS: TPN PER PHARMACY IV NR (20:00)
[2023-10-13] VITALS (108 sets, daily range): BP systolic 89–151; BP diastolic 38–65; PULSE 85–99; RESP 9–25; TEMP 97.6–98.8; O2SAT 93–99
[2023-10-13 04:05] LABS: Eosinophils % (auto) 1.2 % (0.0-7.0); Hemoglobin 9.6 g/dL (13.5-17.5); Lymphocytes # (auto) 0.5 10 ^3/uL (0.4-5.4); Mean Corpuscular Hgb Conc. 33.7 g/dL (32.0-36.0); Red Cell Distribution Width 17.2 % (11.8-14.3)
[2023-10-13 04:07] LABS: Basophils # (auto) 0.1 10 ^3/uL (0-0.2); Basophils % (auto) 0.4 % (0.0-2.0); Eosinophils # (auto) 0.2 10 ^3/uL (0-0.8); Hematocrit 28.5 % (41.0-53.0); Lymphocytes % (auto) 4.1 % (10.0-50.0); Mean Corpuscular Hemoglobin 35.2 pg (28.0-32.0); Mean Corpuscular Volume 104.3 fL (80.0-100.0); Monocytes # (auto) 0.7 10 ^3/uL (0-1.3); Monocytes % (auto) 5.6 % (0.0-12.0); Neutrophils # (auto) 11.4 10 ^3/uL (1.6-8.6); Neutrophils % (auto) 88.7 % (37.0-80.0); Nucleated Red Blood Cells % 0.8 %; Red Blood Cells 2.73 10^6/uL (4.5-5.90); White Blood Cell 12.9 10^3/uL (4.4-10.8)
[2023-10-13 04:14] LABS: Alanine Aminotransferase 76 U/L (7-40); Albumin 3.4 g/dL (3.2-4.8); Alkaline Phosphatase 94 U/L (46-116); Anion Gap 11 (5-15); Aspartate Aminotransferase 146 U/L (13-40); Calcium 9.3 mg/dL (8.5-10.1); Carbon Dioxide 24 mmol/L (20-30); Chloride 105 mmol/L (98-107); Glucose 121 mg/dL (74-106); Phosphorus 5.3 mg/dL (2.4-5.1); Potassium 4.7 mmol/L (3.5-5.1); Sodium 140 mmol/L (136-145); Total Protein 5.8 g/dL (5.7-8.2)
[2023-10-13 04:22] LABS: Blood Urea Nitrogen 132 mg/dL (9-23)
[2023-10-13 05:08] LABS: Macrocytosis Slight; Platelet Estimate Decreased
[2023-10-13 05:14] LABS: BUN/Creatinine Ratio 36.3 (10.0-20.0)
[2023-10-13 07:41] LABS: Magnesium 1.9 mg/dL (1.6-2.6)
[2023-10-13 07:44] LABS: Base Excess -3.4 mmol/L (-2.0-2.0)
[2023-10-13] MEDS: FLUCONAZOLE 200MG/100ML 100 ML IV SCH (11:47)
[2023-10-13] MEDS: ALBUMIN 25% 100 ML IV SCH (13:56)
[2023-10-13] MEDS: Nepro With Carb Steady 1 Liter Bottle GT SCH (15:00)
[2023-10-13] MEDS: TPN PER PHARMACY IV NR (21:23)
[2023-10-13] MEDS: METOCLOPRAMIDE 10 mg/10ml ORAL soln PO SCH (21:58)
[2023-10-14] VITALS (135 sets, daily range): BP systolic 78–156; BP diastolic 38–75; PULSE 76–125; RESP 7–24; TEMP 93.4–99.1; O2SAT 90–97
[2023-10-14 04:14] LABS: Basophils # (auto) 0 10 ^3/uL (0-0.2); Eosinophils # (auto) 0.1 10 ^3/uL (0-0.8); Eosinophils % (auto) 0.5 % (0.0-7.0); Lymphocytes # (auto) 0.4 10 ^3/uL (0.4-5.4); Mean Corpuscular Volume 106.7 fL (80.0-100.0); Monocytes # (auto) 0.6 10 ^3/uL (0-1.3)
[2023-10-14 04:18] LABS: Basophils % (auto) 0.4 % (0.0-2.0); Hematocrit 26.6 % (41.0-53.0); Hemoglobin 9.4 g/dL (13.5-17.5); Lymphocytes % (auto) 2.9 % (10.0-50.0); Mean Corpuscular Hemoglobin 37.8 pg (28.0-32.0); Mean Corpuscular Hgb Conc. 35.4 g/dL (32.0-36.0); Monocytes % (auto) 4.6 % (0.0-12.0); Neutrophils # (auto) 12.3 10 ^3/uL (1.6-8.6); Neutrophils % (auto) 91.6 % (37.0-80.0); Nucleated Red Blood Cells % 0.6 %; Red Blood Cells 2.49 10^6/uL (4.5-5.90); Red Cell Distribution Width 17.3 % (11.8-14.3); White Blood Cell 13.4 10^3/uL (4.4-10.8)
[2023-10-14 04:20] LABS: Chloride 104 mmol/L (98-107); Sodium 138 mmol/L (136-145)
[2023-10-14 04:21] LABS: Anion Gap 11 (5-15); Calcium 9.3 mg/dL (8.5-10.1); Carbon Dioxide 23 mmol/L (20-30)
[2023-10-14 04:26] LABS: Glucose 142 mg/dL (74-106)
[2023-10-14 04:28] LABS: Phosphorus 5.8 mg/dL (2.4-5.1)
[2023-10-14 04:36] LABS: BUN/Creatinine Ratio 34.7 (10.0-20.0)
[2023-10-14 04:38] LABS: Blood Urea Nitrogen 149 mg/dL (9-23)
[2023-10-14 06:23] LABS: Platelet Estimate Markedly Decreased
[2023-10-14 06:24] LABS: Macrocytosis Moderate
[2023-10-14] MEDS: SODIUM CHL 0.9% 1000 ML BAG XX ONE (07:00)
[2023-10-14 07:10] LABS: Base Excess -6.2 mmol/L (-2.0-2.0)
[2023-10-14 12:06] LABS: Protein, Body Fluid 0.5 g/dL (.)
[2023-10-14] MEDS: LACTULOSE 20Gm/30ML SOLN NG SCH (13:22)
[2023-10-14] MEDS: ALBUMIN 25% 100 ML IV ONE (17:24)
[2023-10-14] MEDS: EPOETIN ALFA-EPBX 10,000 UNIT/1ML VIAL SC ONE (21:57)
[2023-10-15] VITALS (103 sets, daily range): BP systolic 74–154; BP diastolic 34–88; PULSE 90–108; RESP 13–26; TEMP 96.1–98.8; O2SAT 92–96
[2023-10-15 03:55] LABS: Basophils # (auto) 0 10 ^3/uL (0-0.2); Hemoglobin 9.7 g/dL (13.5-17.5); Monocytes # (auto) 0.6 10 ^3/uL (0-1.3)
[2023-10-15 04:01] LABS: Basophils % (auto) 0.2 % (0.0-2.0); Eosinophils # (auto) 0 10 ^3/uL (0-0.8); Eosinophils % (auto) 0.3 % (0.0-7.0); Hematocrit 27.1 % (41.0-53.0); Lymphocytes # (auto) 0.4 10 ^3/uL (0.4-5.4); Mean Corpuscular Hemoglobin 37.6 pg (28.0-32.0); Mean Corpuscular Hgb Conc. 35.9 g/dL (32.0-36.0); Mean Corpuscular Volume 104.9 fL (80.0-100.0); Monocytes % (auto) 4.5 % (0.0-12.0); Nucleated Red Blood Cells % 0.3 %; Red Blood Cells 2.58 10^6/uL (4.5-5.90); Red Cell Distribution Width 16.8 % (11.8-14.3); White Blood Cell 14.2 10^3/uL (4.4-10.8)
[2023-10-15 04:06] LABS: Alanine Aminotransferase 74 U/L (7-40); Albumin 3.5 g/dL (3.2-4.8); Alkaline Phosphatase 114 U/L (46-116); Anion Gap 13 (5-15); Aspartate Aminotransferase 182 U/L (13-40); Bilirubin, Total 17.5 mg/dL (0.2-1.0); Calcium 9.5 mg/dL (8.7-10.4); Carbon Dioxide 25 mmol/L (20-30); Chloride 102 mmol/L (98-107); Glucose 96 mg/dL (74-106); Potassium 4.1 mmol/L (3.5-5.1); Sodium 140 mmol/L (136-145); Total Protein 5.9 g/dL (5.7-8.2)
[2023-10-15 04:18] LABS: BUN/Creatinine Ratio 29.4 (10.0-20.0)
[2023-10-15 04:19] LABS: Blood Urea Nitrogen 96 mg/dL (9-23)
[2023-10-15 07:38] LABS: Base Excess -1.8 mmol/L (-2.0-2.0)
[2023-10-15] MEDS: EPINEPHrine HCL 0.5 ML NEB ONE (08:51)
[2023-10-15 10:59] LABS: INR 2.23 (0.9-1.15); Partial Thromboplastin Time 55.5 SEC (24.5-34.5); Prothrombin Time 22.3 sec (9.3-11.8)
[2023-10-16] VITALS (108 sets, daily range): BP systolic 81–166; BP diastolic 39–80; PULSE 95–127; RESP 15–24; TEMP 96.6–98.8; O2SAT 90–98
[2023-10-16 04:28] LABS: Basophils # (auto) 0 10 ^3/uL (0-0.2); Lymphocytes # (auto) 0.6 10 ^3/uL (0.4-5.4); Monocytes # (auto) 0.7 10 ^3/uL (0-1.3); Nucleated Red Blood Cells % 0.2 %
[2023-10-16 04:33] LABS: Basophils % (auto) 0.1 % (0.0-2.0); Eosinophils # (auto) 0 10 ^3/uL (0-0.8); Eosinophils % (auto) 0.3 % (0.0-7.0); Lymphocytes % (auto) 3.9 % (10.0-50.0); Mean Corpuscular Hemoglobin 38.5 pg (28.0-32.0); Mean Corpuscular Hgb Conc. 35.8 g/dL (32.0-36.0); Mean Corpuscular Volume 107.6 fL (80.0-100.0); Monocytes % (auto) 4.3 % (0.0-12.0); Neutrophils # (auto) 14.7 10 ^3/uL (1.6-8.6); Neutrophils % (auto) 91.4 % (37.0-80.0); Red Blood Cells 2.61 10^6/uL (4.5-5.90); Red Cell Distribution Width 17.4 % (11.8-14.3); White Blood Cell 16.1 10^3/uL (4.4-10.8)
[2023-10-16 04:41] LABS: Albumin 3.2 g/dL (3.2-4.8); Alkaline Phosphatase 159 U/L (46-116); Anion Gap 15 (5-15); Bilirubin, Total 21.5 mg/dL (0.2-1.0); Calcium 9.7 mg/dL (8.5-10.1); Carbon Dioxide 23 mmol/L (20-30); Chloride 101 mmol/L (98-107); Glucose 87 mg/dL (74-106); Potassium 4.9 mmol/L (3.5-5.1); Sodium 139 mmol/L (136-145)
[2023-10-16 04:44] LABS: Alanine Aminotransferase 85 U/L (7-40); Aspartate Aminotransferase 255 U/L (13-40); BUN/Creatinine Ratio 30.1 (10.0-20.0); Total Protein 5.9 g/dL (5.7-8.2)
[2023-10-16 04:55] LABS: Blood Urea Nitrogen 120 mg/dL (9-23)
[2023-10-16 05:34] LABS: Macrocytosis Moderate; Platelet Estimate Decreased
[2023-10-16 08:52] LABS: Base Excess -3.9 mmol/L (-2.0-2.0)
[2023-10-16] MEDS: ALBUMIN 25% 100 ML IV ONE (16:33)
[2023-10-16] MEDS: SODIUM CHL 0.9% 1000 ML BAG XX ONE (16:52)
[2023-10-16] MEDS: phytonadione 10 MG in SODIUM CHL 0.9% 50 ML IV ONE (18:00)
[2023-10-16] MEDS: EPOETIN ALFA-EPBX 10,000 UNIT/1ML VIAL SC ONE (21:28)
[2023-10-17] VITALS (112 sets, daily range): BP systolic 81–144; BP diastolic 39–79; PULSE 87–119; RESP 16–28; TEMP 97.2–99.3; O2SAT 95–99
[2023-10-17 04:09] LABS: Eosinophils % (auto) 0.3 % (0.0-7.0); Lymphocytes # (auto) 0.7 10 ^3/uL (0.4-5.4)
[2023-10-17 04:12] LABS: Basophils # (auto) 0 10 ^3/uL (0-0.2); Basophils % (auto) 0.2 % (0.0-2.0); Eosinophils # (auto) 0 10 ^3/uL (0-0.8); Hematocrit 27.7 % (41.0-53.0); Mean Corpuscular Hemoglobin 38.6 pg (28.0-32.0); Mean Corpuscular Hgb Conc. 36.2 g/dL (32.0-36.0); Mean Corpuscular Volume 106.7 fL (80.0-100.0); Monocytes # (auto) 0.8 10 ^3/uL (0-1.3); Monocytes % (auto) 4.8 % (0.0-12.0); Neutrophils # (auto) 15.4 10 ^3/uL (1.6-8.6); Neutrophils % (auto) 90.7 % (37.0-80.0); Nucleated Red Blood Cells % 0.3 %; Red Cell Distribution Width 17.7 % (11.8-14.3)
[2023-10-17 04:21] LABS: Albumin 3.1 g/dL (3.2-4.8); Alkaline Phosphatase 182 U/L (46-116); Anion Gap 15 (5-15); Calcium 9.4 mg/dL (8.7-10.4); Carbon Dioxide 22 mmol/L (20-30); Chloride 101 mmol/L (98-107); Glucose 103 mg/dL (74-106); Potassium 4.3 mmol/L (3.5-5.1); Sodium 138 mmol/L (136-145)
[2023-10-17 04:22] LABS: Alanine Aminotransferase 97 U/L (7-40); Aspartate Aminotransferase 300 U/L (13-40); BUN/Creatinine Ratio 25.8 (10.0-20.0); Bilirubin, Total 25.5 mg/dL (0.2-1.0)
[2023-10-17 04:34] LABS: Blood Urea Nitrogen 82 mg/dL (9-23)
[2023-10-17 08:13] LABS: Macrocytosis Slight; Platelet Estimate Markedly Decreased
[2023-10-17 08:31] LABS: Base Excess -3.4 mmol/L (-2.0-2.0)
[2023-10-17] MEDS: MICAFUNGIN SODIUM 100 MG in SODIUM CHL 0.9% 100 ML IV SCH (09:54)
[2023-10-17 13:06] LABS: Vitamin B1, Whole Blood 459.7 nmol/L (66.5-200.0)
[2023-10-18] VITALS (111 sets, daily range): BP systolic 64–162; BP diastolic 19–75; PULSE 94–116; RESP 16–22; TEMP 96.3–99.1; O2SAT 17–99
[2023-10-18 04:08] LABS: Eosinophils # (auto) 0 10 ^3/uL (0-0.8); Eosinophils % (auto) 0.2 % (0.0-7.0); Hemoglobin 10.1 g/dL (13.5-17.5); Lymphocytes # (auto) 0.9 10 ^3/uL (0.4-5.4); Mean Corpuscular Volume 105.4 fL (80.0-100.0); Nucleated Red Blood Cells % 0.2 %
[2023-10-18 04:11] LABS: Basophils # (auto) 0 10 ^3/uL (0-0.2); Basophils % (auto) 0.2 % (0.0-2.0); Hematocrit 28.3 % (41.0-53.0); Mean Corpuscular Hemoglobin 37.7 pg (28.0-32.0); Mean Corpuscular Hgb Conc. 35.7 g/dL (32.0-36.0); Monocytes # (auto) 1.2 10 ^3/uL (0-1.3); Monocytes % (auto) 6.2 % (0.0-12.0); Neutrophils # (auto) 16.6 10 ^3/uL (1.6-8.6); Neutrophils % (auto) 88.4 % (37.0-80.0); Red Blood Cells 2.68 10^6/uL (4.5-5.90); Red Cell Distribution Width 17.3 % (11.8-14.3); White Blood Cell 18.7 10^3/uL (4.4-10.8)
[2023-10-18 04:20] LABS: Albumin 2.8 g/dL (3.2-4.8); Alkaline Phosphatase 196 U/L (46-116); Anion Gap 16 (5-15); Calcium 9.3 mg/dL (8.7-10.4); Carbon Dioxide 21 mmol/L (20-30); Chloride 101 mmol/L (98-107); Glucose 74 mg/dL (74-106); Potassium 5.1 mmol/L (3.5-5.1); Sodium 138 mmol/L (136-145)
[2023-10-18 04:21] LABS: Bilirubin, Total 27.7 mg/dL (0.2-1.0)
[2023-10-18 04:31] LABS: Alanine Aminotransferase 103 U/L (7-40); Aspartate Aminotransferase 310 U/L (13-40); Total Protein 5.7 g/dL (5.7-8.2)
[2023-10-18 04:35] LABS: BUN/Creatinine Ratio 27.7 (10.0-20.0); Blood Urea Nitrogen 103 mg/dL (9-23)
[2023-10-18 06:37] LABS: Base Excess -6.5 mmol/L (-2.0-2.0)
[2023-10-18] MEDS: PHENYLEPHRINE INJ 80 MG in SODIUM CHL 0.9% 242 ML IV SCH (11:00)
[2023-10-18] MEDS: NOREPINEPHRINE BITARTRATE 32 MG in SODIUM CHL 0.9% 218 ML IV SCH (12:00)
[2023-10-19] VITALS (56 sets, daily range): BP systolic 27–178; BP diastolic 14–51; PULSE 41–114; RESP 15–22; TEMP 96.4–99.1; O2SAT 59–100
[2023-10-19 01:07] LABS: Basophils # (auto) 0 10 ^3/uL (0-0.2); Basophils % (auto) 0.1 % (0.0-2.0); Eosinophils # (auto) 0 10 ^3/uL (0-0.8); Eosinophils % (auto) 0.1 % (0.0-7.0); Hematocrit 27.4 % (41.0-53.0); Hemoglobin 9.1 g/dL (13.5-17.5); Lymphocytes # (auto) 0.6 10 ^3/uL (0.4-5.4); Lymphocytes % (auto) 4.4 % (10.0-50.0); Mean Corpuscular Hgb Conc. 33.3 g/dL (32.0-36.0); Mean Corpuscular Volume 105.2 fL (80.0-100.0); Monocytes # (auto) 0.8 10 ^3/uL (0-1.3); Monocytes % (auto) 5.7 % (0.0-12.0); Neutrophils # (auto) 12.5 10 ^3/uL (1.6-8.6); Neutrophils % (auto) 89.7 % (37.0-80.0); Nucleated Red Blood Cells % 0.4 %; Red Cell Distribution Width 18.4 % (11.8-14.3); White Blood Cell 13.9 10^3/uL (4.4-10.8)
[2023-10-19 01:28] LABS: Albumin 2.5 g/dL (3.2-4.8); Alkaline Phosphatase 191 U/L (46-116); Anion Gap 16 (5-15); Anisocytosis Slight; Bilirubin, Total 26.5 mg/dL (0.2-1.0); Calcium 7.6 mg/dL (8.7-10.4); Carbon Dioxide 18 mmol/L (20-30); Chloride 103 mmol/L (98-107); Large Platelets FEW; Macrocytosis Moderate; Sodium 137 mmol/L (136-145)
[2023-10-19 01:29] LABS: Platelet Estimate Decreased; Target Cell FEW
[2023-10-19 01:31] LABS: Alanine Aminotransferase 656 U/L (7-40); BUN/Creatinine Ratio 26.5 (10.0-20.0); Total Protein 5.2 g/dL (5.7-8.2)
[2023-10-19 01:35] LABS: Potassium 6.6 mmol/L (3.5-5.1)
[2023-10-19 01:36] LABS: Blood Urea Nitrogen 110 mg/dL (9-23); Glucose 10 mg/dL (74-106)
[2023-10-19] MEDS: DEXTROSE 50% SYRINGE 50 ML IV ONE ×2 (01:42→02:23)
[2023-10-19 01:48] LABS: Aspartate Aminotransferase 4926 U/L (13-40)
[2023-10-19] MEDS: DEXTROSE 10% 1,000 ML IV ONE (01:51)
[2023-10-19] MEDS: InsuLIN REG 1unit/0.01ml Soln (100units/ml) IV ONE ×2 (02:00→09:29)
[2023-10-19] MEDS: CALCIUM GLUC 1,000mg/50ml-NS 50 ML IV ONE ×2 (02:07→02:23)
[2023-10-19] MEDS: ALBUTEROL SULF 2.5 MG/0.5ML(0.5%) NEB SOLN NEB ONE ×2 (02:17→09:49)
[2023-10-19] MEDS: DEXTROSE (50%) 50ML SYRG IV ONE ×2 (02:18→09:29)
[2023-10-19] MEDS: SODIUM BICARB 8.4% 50Meq/50ml SYR INJ IV ONE (02:18)
[2023-10-19] MEDS: DEXTROSE 10% 1,000 ML IV SCH (02:18)
[2023-10-19] MEDS: ACCU-CHEK COMFORT CURVE STRIP VI SCH (02:19)
[2023-10-19] MEDS: SODIUM ZIRCONIUM CYCL 10 GM PAK PO ONE (02:19)
[2023-10-19] MEDS: SODIUM BICARB 8.4% 50Meq/50ml SYR Vial IV ONE ×2 (02:23→09:29)
[2023-10-19] MEDS: VASOPRESSIN 20 UNIT/ML ONE (06:19)
[2023-10-19] MEDS: EPINEPHrine HCL 250 ML IV ONE (06:26)
[2023-10-19] MEDS: ATROPINE SULF 1 MG/10ml SYR IV ONE (06:27)
[2023-10-19] MEDS: EPINEPHrine HCL 250 ML IV SCH (06:32)
[2023-10-19] MEDS: DOPamine 1600MCG/ML D5W 250 ML IV SCH (06:37)
[2023-10-19] MEDS: DOPamine 1600MCG/ML D5W 250 ML IV ONE (07:02)
[2023-10-19 18:06] LABS: Vitamin D 25-Hydroxy 16 ng/mL (.); Vitamin D-2 25-Hydroxy <1.0 ng/mL (.); Vitamin D-3 25-Hydroxy 16 ng/mL (.)
[2023-10-19] MEDS ORDERED: ATROPINE SULF 1 MG/10ml SYR IV ONE (18:45)
== END 2023-10-19 18:46 | DRG 870 ==
LOC: ER 06:46 → EDBD 06:46 → TELE 10:34 → DOU IN ICU 09-29 05:20 → ICU CENTRL 09-29 05:21 → DOU IN ICU 10-05 01:30 → TELE-WESTW 10-05 18:19 → DOU IN ICU 10-08 16:17 → ICU WEST 10-09 09:11
PROVIDERS: ADMIT Nurse Practitioner Acute Care; ATTEND Nurse Practitioner Acute Care
PROC: 05H933Z Insertion of Infusion Device into Right Brachial Vein, Percutaneous Approach (ICD-10-PCS; 2023-09-26)
PROC: B54MZZA Ultrasonography of Right Upper Extremity Veins, Guidance (ICD-10-PCS; 2023-09-26)
PROC: 5A09357 Assistance with Respiratory Ventilation, Less than 24 Consecutive Hours, Continuous Positive Airway Pressure (ICD-10-PCS; 2023-09-26)
PROC: 5A09357 Assistance with Respiratory Ventilation, Less than 24 Consecutive Hours, Continuous Positive Airway Pressure (ICD-10-PCS; 2023-09-27)
PROC: 0W9G3ZZ Drainage of Peritoneal Cavity, Percutaneous Approach (ICD-10-PCS; principal; 2023-09-28)
PROC: 02HV33Z Insertion of Infusion Device into Superior Vena Cava, Percutaneous Approach (ICD-10-PCS; 2023-09-28)
PROC: B548ZZA Ultrasonography of Superior Vena Cava, Guidance (ICD-10-PCS; 2023-09-28)
PROC: 5A09357 Assistance with Respiratory Ventilation, Less than 24 Consecutive Hours, Continuous Positive Airway Pressure (ICD-10-PCS; 2023-09-28)
PROC: 0BH17EZ Insertion of Endotracheal Airway into Trachea, Via Natural or Artificial Opening (ICD-10-PCS; 2023-09-28)
PROC: 5A1945Z Respiratory Ventilation, 24-96 Consecutive Hours (ICD-10-PCS; 2023-09-28)
PROC: 0W9G3ZZ Drainage of Peritoneal Cavity, Percutaneous Approach (ICD-10-PCS; 2023-09-28)
PROC: 0BP1XDZ Removal of Intraluminal Device from Trachea, External Approach (ICD-10-PCS; 2023-10-02)
PROC: 0W9G3ZZ Drainage of Peritoneal Cavity, Percutaneous Approach (ICD-10-PCS; 2023-10-07)
PROC: 5A1955Z Respiratory Ventilation, Greater than 96 Consecutive Hours (ICD-10-PCS; 2023-10-09)
PROC: 5A09357 Assistance with Respiratory Ventilation, Less than 24 Consecutive Hours, Continuous Positive Airway Pressure (ICD-10-PCS; 2023-10-09)
PROC: 0BH17EZ Insertion of Endotracheal Airway into Trachea, Via Natural or Artificial Opening (ICD-10-PCS; 2023-10-09)
PROC: 02HV33Z Insertion of Infusion Device into Superior Vena Cava, Percutaneous Approach (ICD-10-PCS; 2023-10-12)
PROC: B548ZZA Ultrasonography of Superior Vena Cava, Guidance (ICD-10-PCS; 2023-10-12)
PROC: 0W9G3ZZ Drainage of Peritoneal Cavity, Percutaneous Approach (ICD-10-PCS; 2023-10-12)
PROC: 4A133B1 Monitoring of Arterial Pressure, Peripheral, Percutaneous Approach (ICD-10-PCS; 2023-10-12)
PROC: 5A1D70Z Performance of Urinary Filtration, Intermittent, Less than 6 Hours Per Day (ICD-10-PCS; 2023-10-12)
PROC: 02HV33Z Insertion of Infusion Device into Superior Vena Cava, Percutaneous Approach (ICD-10-PCS; 2023-10-14)
PROC: B548ZZA Ultrasonography of Superior Vena Cava, Guidance (ICD-10-PCS; 2023-10-14)
PROC: 30233R1 Transfusion of Nonautologous Platelets into Peripheral Vein, Percutaneous Approach (ICD-10-PCS; 2023-10-14)
PROC: 5A1D70Z Performance of Urinary Filtration, Intermittent, Less than 6 Hours Per Day (ICD-10-PCS; 2023-10-16)
PROC: 0W9G3ZZ Drainage of Peritoneal Cavity, Percutaneous Approach (ICD-10-PCS; 2023-10-17)
DX: A41.50 Gram-negative sepsis, unspecified (principal); G92.8 Other toxic encephalopathy; J69.0 Pneumonitis due to inhalation of food and vomit; J96.01 Acute respiratory failure with hypoxia; R65.21 Severe sepsis with septic shock; J15.9 Unspecified bacterial pneumonia; J15.69 Pneumonia due to other Gram-negative bacteria; D68.9 Coagulation defect, unspecified; E46 Unspecified protein-calorie malnutrition; I42.9 Cardiomyopathy, unspecified; I50.40 Unspecified combined systolic (congestive) and diastolic (congestive) heart failure; J44.0 Chronic obstructive pulmonary disease with (acute) lower respiratory infection; J44.1 Chronic obstructive pulmonary disease with (acute) exacerbation; N17.9 Acute kidney failure, unspecified; R18.8 Other ascites; B49 Unspecified mycosis; T40.3X1A Poisoning by methadone, accidental (unintentional), initial encounter; Z20.822 Contact with and (suspected) exposure to COVID-19; E86.1 Hypovolemia; E87.6 Hypokalemia; Z66 Do not resuscitate; D69.6 Thrombocytopenia, unspecified; K70.9 Alcoholic liver disease, unspecified; K74.60 Unspecified cirrhosis of liver; K76.82 Hepatic encephalopathy; F11.10 Opioid abuse, uncomplicated; E87.5 Hyperkalemia; R00.1 Bradycardia, unspecified; B19.20 Unspecified viral hepatitis C without hepatic coma; Z99.2 Dependence on renal dialysis; Y92.89 Other specified places as the place of occurrence of the external cause; Z68.29 Body mass index [BMI] 29.0-29.9, adult
CPT/HCPCS: 36415; 36600; 49083; 70450; 71045; 74176; 76705; 76942; 80048; 80053; 80074; 80307; 80320; 81001; 82140; 82306; 82746; 82805; 82962; 83605; 83735; 83880; 83986; 84100; 84132; 84425; 84478; 84484; 85007; 85025; 85027; 85610; 85730; 86850; 86900; 86901; 87040; 87070; 87077; 87081; 87086; 87186; 87205; 87426; 87804; 89051; 90935; 92610; 93005; 93306; 94002; 94003; 94640; 94644; 94660; 96361; 96374; 96375; 97110; 97116; 97163; 97530; 99291; C9113; G0378; J0171; J0692; J1450; J1815; J2185; J2248; J2405; J2704; J3430; J3490; J7060; P9047